=== PATIENT | female | born 1965 | race Caucasian/White ===

== ENCOUNTER 2024-07-14 11:21 | Emergency (ER) | payer OTHER, SELFPAY ==
[2024-07-14 11:23] VITALS: BP 136/77
--- NOTE | 2024-07-14 12:33 | ED.GENMED ---
History of Present Illness
General
Chief Complaint: Musculo-Skeletal Complaint
Source: patient
Time Seen by Provider: 07/14/24 12:24
History of Present Illness
History of Present Illness:
58-year-old female with past medical history of previous CVA, hypertension, [id number] diabetes, Carmita's thyroiditis presenting to the emergency department for evaluation of nontraumatic right knee pain and edema that started
yesterday, worse today, patient noting that she has needed her right knee drained in the past with symptoms feeling somewhat similar which is why she decided come to the ER. Patient notes that in 2017 she was recommended by orthopedics to have a
knee replacement however she has been trying to hold off on getting this. She denies any fevers, chills, rigors, erythema, focal weakness or numbness or any other concerns presently.
Past History
Past History
ED Past Medical History: HTN (takes HCTZ 12.5 mg daily), NIDDM, Hypothyroidism, Other ('migraines' never had head CT or workup. Did use Imetrex IM at one time. States Ibuprofen worked for her migraines in the past.) and Other (Hoshimoto's thyroid.
Takes medication but doesn't recall name)
ED Past Surgical History:
Social History
Tobacco: Smoker (1 PPD x 25 yr.)
Alcohol: None
Drug: None
Personal:
Living: with family
Employment: Employed
Review of Systems
Review of Systems
All Other Systems: ROS reviewed and negative except as documented in HPI and ROS
Phy Exam
Physical Exam
Physical Exam:
GENERAL: Alert , in no apparent distress
EYE: conjunctiva clear
Head: Normocephalic atraumatic
NECK: Supple,
ENT: mmm.
LUNGS: no acute respiratory distress
NEUROLOGICAL: Alert and oriented
SKIN: Warm and dry, skin intact.
MUSCULOSKELETAL: Right lower extremity: Degenerative changes noted to the anterior portion of the knee, patient allows for flexion and extension without much difficulty. There is tenderness proximal and lateral to the patella however no effusion
appreciated. No joint laxity. There is no overlying erythema. Extremity is otherwise warm and well-perfused and neurovascularly intact.
PSYCH: Normal and appropriate interaction.
Scores
Heart Failure Risk
Heart Failure Risk Score: Not Applicable
Heart Score for Chest Pain Patients
STEMI patient?: Not applicable
Withdrawal Assessment of Alcohol
Withdrawal Assessment Completed?: Not applicable
Course
Orders/Labs/Results
Orders:
Orders
07/14/24 11:25
Knee, Right 4 or More Views [CR Knee- Right 4 Or More View*] Urgent
Comment:
Reason For Exam: pain/swelling
Vital Signs
Initial and Last Documented VS:
Initial Vital Signs
Temp Pulse Resp BP Pulse Ox
97.7 F 85 17 136/77 99
07/14/24 11:23 07/14/24 11:23 07/14/24 11:23 07/14/24 11:23 07/14/24 11:23
Last Documented Vital Signs
Temp Pulse Resp BP Pulse Ox
97.7 F 85 17 136/77 99
07/14/24 11:23 07/14/24 11:23 07/14/24 11:23 07/14/24 11:23 07/14/24 11:23
MDM/Problems Addressed
Differential Diagnosis Includes:
Exacerbation of known right knee arthritic changes, no symptoms to suggest infectious etiology, effusion, no symptoms or mechanism to suggest fracture
MDM/Problems Addressed:
58-year-old female presenting to the ER for evaluation of nontraumatic right knee pain. History of knee pain in the past and was recommended many years ago for a total knee replacement however patient has been resistant to this. Based off exam
there does not appear to be any large joint effusion and x-ray ordered from triage confirms that there is no effusion but there is significant degenerative changes seen. I discussed with the patient that at this time I did not feel arthrocentesis
was needed but I did request patient get in contact with her orthopedic team as she would likely need more intervention including possible steroid injection and given she was recommended for a total knee replacement 8 years ago I expressed my
concern that patient would likely need this procedure done at some point to help alleviate her symptoms. We discussed return precautions for any signs of infection. At this time patient stable for discharge home. Will trial a Medrol Dosepak for
pain control.
*Radiology
Radiology exam reviewed: preliminary read by ED provider (Significant degenerative changes throughout)
*Pulse Oximetry
Patient hypoxic: no
*Critical Care Note
Total Time (30-74mins, 75-104mins- exclusive of procedures): Not Applicable
ED Attending Note
-
Portions of this chart may have been created with voice recognition software.� Occasional wrong word or��sound alike� substitutions may have occurred due to the inherent limitations of voice recognition software.
Discharge Plan
Departure
Patient Disposition: Home (Routine Discharge)
Date of Disposition: 07/14/24
Time of Disposition: 12:33
Patient with high blood pressure during this ER visit?: No
Discharge Problem:
Knee pain, right
Instructions: Knee Pain (DC)
Prescriptions:
New
methylprednisolone [Medrol (Derrick)] 4 mg tablets,dose pack
4 mg PO DIRECTED Qty: 21 0RF
No Action
No Current Medications
Referrals:
Ron Tadeo MD [Family Provider] -
Sandro Alonso MD [Active] - (Ortho - Please call for appointment)
Interventions
Interventions:
*Risk Screen - Suicide Last Done: 07/14/24 11:25
*General Assessment Last Done: 07/14/24 11:25
*Neglect/Abuse Screening Last Done: 07/14/24 11:25
*ED COVID-19 Vaccine History Last Done: 07/14/24 11:25
*Nursing Disposition Last Done: 07/14/24 13:01
ED-Musculoskeletal Assessment Last Done: 07/14/24 12:30
Discharge Date and Time
Print Language: MEXICAN
== END 2024-07-14 13:03 | disposition home or self-care (01) ==
LOC: EMR 11:21
PROVIDERS: EMERGENCY PHYSICIAN Emergency Medicine; FAMILY PHYSICIAN Family Medicine
DX: M25.561 Pain in right knee (principal); I10 Essential (primary) hypertension; E11.9 Type 2 diabetes mellitus without complications; E06.3 Autoimmune thyroiditis; F17.210 Nicotine dependence, cigarettes, uncomplicated; Z86.73 Personal history of transient ischemic attack (TIA), and cerebral infarction without residual deficits
CPT/HCPCS: 99283; 73564